=== PATIENT | male | born 1945 | race African-American/Black ===

== ENCOUNTER 2020-09-16 19:13 | Inpatient (IN) | payer OTHER ==
[~2020-09-16] VITALS: Ht 190.5 cm; Wt 130.2 kg
[~2020-09-16 19:13] MED LIST: AMLODIPINE5 MG PO; CIPROFLOXACN500 MG PO; DILAUDID 2MG2 MG/TA1 PO; DORZOLAMIDE2 % OU; GLIPIZIDE10 MG PO; HUMULIN R1 M1 SC; INSTA-GLUCOS40 % PO; LATANOPROST0.005 % OU; LOPID600 MG PO; LOPRESSOR50 M1 PO; LORATADINE10 M1 PO; METFORMIN850 MG PO; PREDNISONE10 MG PO; ULTRAM50 M1 PO
--- NOTE | 2020-09-16 19:13 | NUR ---
PT TO RM 16 VIA EMS FROM [facility] W/SOB +COVID X 5 DAYS
[2020-09-16 19:52] LABS: IMMATURE GRANULOCYTES 0.4 % (0.0-5.0); MEAN CELL VOLUME 93.1 fL CALC (80.0-100.0); MEAN CORPUSCULAR HGB 30.1 pG CALC (26.0-32.0); MEAN CORPUSCULAR HGB CONC 32.3 g/dL CAL (32.0-36.0); NEUT# 7.44 thou/uL (1.82-7.42); RED BLOOD COUNT 4.49 mill/uL (4.70-6.10); RED CELL DISTRI WIDTH 15.4 % (11.5-15.5)
[2020-09-16 20:00] LABS: HEMATOCRIT 41.8 % (39.0-50.0); HEMOGLOBIN 13.5 g/dl (14.0-18.0)
[2020-09-16 20:05] LABS: PROTHROMBIN TIME 10.2 SECONDS (9.0-12.5)
[2020-09-16] MEDS ORDERED: NOVOLIN N100 UNIT/3 SC ×2 (20:42→20:43)
[2020-09-16] MEDS ORDERED: ALLOPURINOL100 MG PO (20:47)
[2020-09-16 20:57] LABS: ALBUMIN 4.4 g/dL (3.2-5.0); CREATININE 1.5 mg/dL (0.7-1.3); POTASSIUM 4.5 mmol/l (3.5-5.1)
[2020-09-16 21:13] LABS: BILIRUBIN, TOTAL 0.5 mg/dL (0.0-1.4); TOTAL PROTEIN 8.4 g/dL (6.3-8.2)
--- NOTE | 2020-09-16 21:40 | NUR ---
INSULIN DOSE AT 2140 NOT GIVEN ACCUCHECK 117
--- NOTE | 2020-09-16 21:45 | NUR ---
po fluids provided to pt per md. advised of wait time for covid test results to facilitate transfer.
--- NOTE | 2020-09-16 23:35 | NUR ---
REPORT CALLED TO NURSE REG IN ICU ADVISED OF INSULIN HELD FOR BGL OF 117. PT VSS. IV SITES HEALTHY. REMAINS ON CARDIZEM DRIP AT 15MG/HR. IV ABT COMPLETE. PT ON HI FLOW O2. SATS.
--- NOTE | 2020-09-16 23:55 | NUR ---
spoke to pt @ length about prone position.
--- NOTE | 2020-09-16 23:55 | NUR ---
74 yr old black male admitted icu2 per stretcher from er to icu2. transferred self to bed. o2 15 liters per high flow nc. monitor worker shows a fib pvcs hr 138. #20 rac saline lock. #20 lac cardizem gtt infusing @ 15mg hr, ns infusing @ 100cchr. history obtained per pt & er record. oriented to room. bilat feet shackled together. guards x2 @ bedside. fall & air/contact precautions initiated.
[2020-09-17] VITALS (97 sets, daily range): BP systolic 74–204; BP diastolic 50–99
--- NOTE | 2020-09-17 02:00 | NUR ---
remains with hob in high position. o2 cont per nc. front desk monitor shows a fib pvc hr 142.
--- NOTE | 2020-09-17 04:00 | NUR ---
awake. nad. hall monitor shows a fib pvcs hr 138. hob remains in high position.
--- NOTE | 2020-09-17 05:59 | NUR ---
hob remains in high position. o2 cont per nc. monitoring manager shows a fib hr 134.
[2020-09-17 06:25] LABS: HEMATOCRIT 43.4 % (39.0-50.0); HEMOGLOBIN 14.2 g/dl (14.0-18.0); IMMATURE GRANULOCYTES 0.3 % (0.0-5.0); MEAN CELL VOLUME 91.2 fL CALC (80.0-100.0); MEAN CORPUSCULAR HGB 29.8 pG CALC (26.0-32.0); MEAN CORPUSCULAR HGB CONC 32.7 g/dL CAL (32.0-36.0); NEUT# 8.01 thou/uL (1.82-7.42); RED BLOOD COUNT 4.76 mill/uL (4.70-6.10); RED CELL DISTRI WIDTH 15.4 % (11.5-15.5)
[2020-09-17 06:52] LABS: ALBUMIN 4.2 g/dL (3.2-5.0); BILIRUBIN, TOTAL 0.6 mg/dL (0.0-1.4); CREATININE 1.4 mg/dL (0.7-1.3); POTASSIUM 4.5 mmol/l (3.5-5.1)
--- NOTE | 2020-09-17 07:20 | NUR ---
pt awake in bed; assessment completed at this time; pt alert and oriented; denies pain; no n/v noted; resp distress noted; resp labored/ tachypneic; lungs clear with exp wheezing; diminished bases; skin color wnl; o2 per hi marcus nc at 15L; o2 sat 86%; rayon tester cough noted; hr reg; strong pulses; no edema noted; afib 150s on monitor; abd distended with bs present; no bm noted per content writer; no urine to inspect at this time; urinal at bedside; #20 to lac saline locked; #20 to rac patent with ivf infusing without complication; no redness or edema noted at site; prone positioning explained; pt declined /requesting breakfast; resp failure with intubation explained and pt agree if need be; RT at bedside for ABG; plah of care/ meds explained; flowerpath staff x1 outside of door; pt shackled to bed via right ankle; call light within reach; will continue to monitor
--- NOTE | 2020-09-17 07:45 | NUR ---
RT at bedside; vapotherm placed at 40L with 100% FiO2
--- NOTE | 2020-09-17 08:19 | NUR ---
pt awake in bed; afib 140 on moitor; o2 sat 91% with vapotherm; labored resp noted; call light within reach; will continue to monitor
--- NOTE | 2020-09-17 09:21 | NUR ---
pt noted in resp distress; RT at bedside; o2 sats 60s; hr dropping into 90s; Dr De La Torre called per poem writer; awaiting arrival; pt agree to intubation again, witnessed per RT Gilberto; intubation set up at bedside; awaiting MD; will continue to monitor
--- NOTE | 2020-09-17 09:47 | NUR ---
staff at bedside; Dr De La Torre present at bedside; orders received to intubate; medicated per Dr De La Torre; pt intubated with a 7.5 ETT secured at the 23cm lip line; color changed verified; AC mode, rate 20, TV 500, peep 10.0, 100% Fio2; 16 fr OG placed at this time and clamped; 16Fr valadez catheter placed x1 attempt using laundry technician; immed return of dk yellow urine noted; cath strap placed; diprivan gt initated as per order/protocol; staff remains at bedside; will continue to monitor
--- NOTE | 2020-09-17 10:21 | NUR ---
intubated and sedated; iv's intact; afib 130s on the monitor; guard x1 outside door; valadez to gravity; will continue to monitor
--- NOTE | 2020-09-17 11:12 | NUR ---
lab at bedside; RT at bedside for suctioning; sputum specimen obtained; iv's intact and patent; propofol at 25mcg/kg/min; will continue to monitor
--- NOTE | 2020-09-17 12:14 | NUR ---
RT at bedside; frequent coughing noted; frequent suctioining required per RT; propofol gtt infusing per protocol; afib on monitor; valadez to gravity; vent intact and maintained; repositined; will continue to monitor-
--- NOTE | 2020-09-17 14:20 | NUR ---
intubated and sedated; vent maintained and in patent; afib 70s on monitor; valadez to gravity; [facility] staff present outside of door; cardizem gtt at 8mg/hr; propofol per protocol; will continue to monitor
--- NOTE | 2020-09-17 15:00 | NUR ---
Dr De La Torre called per telegraphic typewriter operator chief; informed of hypotension and bradycardia/ afib 30-50s on monitor; cardiazem has been stopped; orders received for levophed; atropine only to be given if needed; will continue to monitor
--- NOTE | 2020-09-17 16:30 | NUR ---
pt fully awake attempting to sit up in bed; condition/ intubation explained; diprivan gtt titrated from 20 mcg/kg/min to 30; bp stable; afin 60-70s on monitor; vent intact and maintained; restraints re-inforced; will continue to monitor
[2020-09-17 18:10] LABS: CREATININE 1.9 mg/dL (0.7-1.3)
[2020-09-17 18:21] LABS: POTASSIUM 5.7 mmol/l (3.5-5.1)
--- NOTE | 2020-09-17 18:22 | NUR ---
call placed to [facility] at [phone]; no answer
--- NOTE | 2020-09-17 18:36 | NUR ---
Dr De La Torre called per technical writer and editor; chemp results reviewed; abg reviewed; orders have been placed in computers; Dr De La Torre has notified Dr Abad of consult
--- NOTE | 2020-09-17 18:42 | NUR ---
call placed to [facility] to provide update; no answer;
--- NOTE | 2020-09-17 19:00 | NUR ---
RECEIVED REPORT FROM AM NURSE. PATIENT CONTINUES ON VENT. PATIENT WITH NO SIGNS OF DISTRESS. PROPOFOL, LEVO, AND FLUIDS INFUSING. WILL CONTINUE TO MONITOR.
[2020-09-17 19:22] LABS: CREATININE 2.1 mg/dL (0.7-1.3)
[2020-09-17 19:23] LABS: POTASSIUM 5.7 mmol/l (3.5-5.1)
--- NOTE | 2020-09-17 20:30 | NUR ---
ASSESSMENT COMPLETED. PATIENT CONTINUES ON VENT. PATIENT STARTED ON INSULIN GTT. BS CURRENTLY >400. PATIENT CONTINUES ON LEVO, PROPOFOL, AND 0.45 NS. PATIENT PROVIDED WITH MOUTH CARE/SUCTION. BP STABLE. PERIPHERAL IVS FLUSHED, WORKING WELL. GODWIN IN PLACE. LOW URINE OUTPUT. WILL CONTINUE TO MONITOR
[2020-09-17 21:16] LABS: BILIRUBIN, TOTAL 0.5 mg/dL (0.0-1.4); MAGNESIUM 2.1 mg/dL (1.6-2.3)
[2020-09-17 21:17] LABS: CREATININE 2.2 mg/dL (0.7-1.3)
[2020-09-17 21:23] LABS: POTASSIUM 5.3 mmol/l (3.5-5.1)
[2020-09-17 22:18] LABS: URINE BLOOD DIPSTICK NEGATIVE (NEGATIVE); URINE COLOR YELLOW; URINE GLUCOSE - DIPSTICK NEGATIVE (NEGATIVE); URINE KETONE Negative (NEGATIVE); URINE LEUK ESTERASE NEGATIVE (NEGATIVE); URINE NITRITE - DIPSTICK NEGATIVE (Negative); URINE PROTEIN - DIPSTICK NEGATIVE (NEG-TRACE); URINE SPECIFIC GRAVITY >=1.030; URINE UROBILINOGEN - DIPSTICK 0.2 E.U./dL (0.2)
[2020-09-17 22:25] LABS: URINE BILIRUBIN - DIPSTICK NEGATIVE (NEGATIVE)
--- NOTE | 2020-09-17 22:30 | NUR ---
PATIENT ROUNDED ON. BED BATH PROVIDED. PATIENT TOLERATED WELL. PATIENT CONTINUES ON PROPOFOL, LEVO, INSULIN GTT. TITRATED INDICATED. PATIENT TURNED AND REPOSITIONED. MOUTH CARE PROVIDED/SUCTIONED. PATIENT VITALS STABLE. WILL CONTINUE TO MONITOR.
[2020-09-17 22:52] LABS: CREATININE 2.2 mg/dL (0.7-1.3); POTASSIUM 5.1 mmol/l (3.5-5.1)
[2020-09-18] VITALS (19 sets, daily range): BP systolic 121–158; BP diastolic 60–73
--- NOTE | 2020-09-18 | NUR ---
patient continues to tolerate vent. patient continues on propofol, levo, and insulin gtt. titrated per emar. patient provided with mouth care. patient repositioned. patient with no signs of distress. will continue to monitor.
--- NOTE | 2020-09-18 02:00 | NUR ---
patient rounded on. patient tolerating vent. propofol, levo, and insulin gtt infusing. patient with no signs of distress. vitals stable. will continue to monitor.
[2020-09-18 02:56] LABS: CREATININE 2.3 mg/dL (0.7-1.3); POTASSIUM 4.7 mmol/l (3.5-5.1)
--- NOTE | 2020-09-18 04:00 | NUR ---
PATIENT CONTINUES TO TOLERATE VENT. PATIENT CONTINUES ON PREVIOUSLY MENTIONED GTTS. VITALS STABLE. WELL CONTINUE TO MONITOR.
--- NOTE | 2020-09-18 06:08 | NUR ---
PATIENT CONTINUES ON VENT. PATIENT WITH GTTS INFUSING. PATIENT WITH NO SIGNS OF DISTRESS. WILL CONTINUE TO MONITOR.
[2020-09-18 06:33] LABS: HEMATOCRIT 40.1 % (39.0-50.0); HEMOGLOBIN 12.9 g/dl (14.0-18.0); IMMATURE GRANULOCYTES 1.2 % (0.0-5.0); MEAN CELL VOLUME 93.5 fL CALC (80.0-100.0); MEAN CORPUSCULAR HGB 30.1 pG CALC (26.0-32.0); MEAN CORPUSCULAR HGB CONC 32.2 g/dL CAL (32.0-36.0); NEUT# 13.23 thou/uL (1.82-7.42); RED BLOOD COUNT 4.29 mill/uL (4.70-6.10); RED CELL DISTRI WIDTH 15.5 % (11.5-15.5)
--- NOTE | 2020-09-18 06:45 | NUR ---
RECIEVED REPORT FROM DEO CLARK. ASSUMED PT CARE.
[2020-09-18 06:52] LABS: BILIRUBIN, TOTAL 0.4 mg/dL (0.0-1.4); CREATININE 2.3 mg/dL (0.7-1.3); POTASSIUM 4.5 mmol/l (3.5-5.1); TOTAL PROTEIN 6.4 g/dL (6.3-8.2)
[2020-09-18 06:55] LABS: ALBUMIN 3.3 g/dL (3.2-5.0)
--- NOTE | 2020-09-18 07:30 | NUR ---
PT REMAINS INTUBATED, REMAINS AFIB ON TELEMETRY, HR 110. PT VENTED LL-24, ETT- 7.5, Tv- 470, rr-24, PEEP-10. SA02@ 94%, LS CLEAR/DIMINISHED, ABDOMEN DISTENDED, NON-TENDER. BSX4 HYPOACTIVE. PT CONTINUES WITH GENERALIZED EDEMA. OJ REMAINS ON INTERMITTENT SUCTION, GREEN CONTENT. GUARDS REMAIN OUTSIDE DOOR, ACCUCHECKS Q1HR CONTINUE, SEE IV TITRATIONS. WILL MONITOR.
--- NOTE | 2020-09-18 08:00 | NUR ---
DR. NOGUERA, NEW ORDERS. REDUCE 1/2 NS TO 75ML/HR.
--- NOTE | 2020-09-18 09:09 | NUR ---
HELD LOVENOX R/T CREATININE 2.3.
--- NOTE | 2020-09-18 10:00 | NUR ---
DR. CHISHOLM AT BEDSIDE, NEW ORDERS. STOP LEVOPHED, CARDIZEM INCREASED. NEW IV STARTED 22G RFA. PT TOLERATED WELL. WILL MONITOR.
--- NOTE | 2020-09-18 12:00 | NUR ---
PT REPOSITIONED, GUARDS REMAIN A T BEDSIDE. MOUTH CARE DONE.
--- NOTE | 2020-09-18 12:30 | NUR ---
LAB AT BEDSIDE FOR BLOOD DRAW, PT TOLERATED WELL.
[2020-09-18 13:03] LABS: CREATININE 2.2 mg/dL (0.7-1.3); POTASSIUM 4.5 mmol/l (3.5-5.1)
--- NOTE | 2020-09-18 13:14 | NUR ---
RT AT BEDSIDE FOR SUCTIONING. PT TOLERATED WELL.
--- NOTE | 2020-09-18 14:15 | NUR ---
CALL RECIEVED FROM DEO BERNAL AT [facility]. TRANSFER INITIATED FOR PT. CONFIRMED WITH DR. CHISHOLM.
--- NOTE | 2020-09-18 14:37 | NUR ---
FAXED FACE SHEET TO [facility] TRANSFER TO R,
--- NOTE | 2020-09-18 16:00 | NUR ---
PT REPOSITIONED, MOUTH CARE DONE. BS 277
--- NOTE | 2020-09-18 16:30 | NUR ---
NOTIFIED GABE AT [facility], SHE SAID TO HAVE DR. CHISHOLM NOTIFY ACCEPTING DR. SAGE AT [phone] OPTION 3 FOR REPORT, ONCE THAT IS COMPLETE TO NOTIFY [facility], AND CALL REPORT TO [phone]. PT WILL GO TO RM 250. DR. CHISHOLM NOTIFIED.
--- NOTE | 2020-09-18 17:19 | NUR ---
DR. CHISHOLM CALLED. PT HAS BEEN ACCEPTED TO [facility], BY DR. JESSICA OTOOLE. NOTES FAXED TO [phone] CHISHOLM REQUEST.
--- NOTE | 2020-09-18 17:32 | NUR ---
NOTIFIED [facility], SETTER MACHINE [phone] THAT PT WAS BEING TRANSFERRED TO [facility].
--- NOTE | 2020-09-18 17:35 | NUR ---
SPOKE WITH JULIANN AT [facility], . ETA FOR TRANSFER 30-45 MINUTES.
--- NOTE | 2020-09-18 18:06 | NUR ---
[facility] HERE FOR TRANSPORT, RT AT BEDSIDE. GUARDS REMAIN X2
--- NOTE | 2020-09-18 18:30 | NUR ---
FELICITY LEFT WITH PT VIA STRETCHER.
--- NOTE | 2020-09-18 18:35 | NUR ---
REPORT CALLED TO DEO JACK AT [facility], ICU [phone]. PT GOING TO RM 250.
== END 2020-09-18 18:30 | DRG 208 ==
LOC: ED 19:13 → ED-I 21:30 → ED 22:26 → ICU 22:27
PROVIDERS: Emergency Medicine; ADMIT Internal Medicine; ATTEND Internal Medicine
PROC: 5A09357 Assistance with Respiratory Ventilation, Less than 24 Consecutive Hours, Continuous Positive Airway Pressure (ICD-10-PCS; 2020-09-16)
PROC: XW033E5 Introduction of Remdesivir Anti-infective into Peripheral Vein, Percutaneous Approach, New Technology Group 5 (ICD-10-PCS; principal; 2020-09-17)
PROC: 0BH17EZ Insertion of Endotracheal Airway into Trachea, Via Natural or Artificial Opening (ICD-10-PCS; 2020-09-17)
PROC: 5A1945Z Respiratory Ventilation, 24-96 Consecutive Hours (ICD-10-PCS; 2020-09-17)
PROC: 0T9B70Z Drainage of Bladder with Drainage Device, Via Natural or Artificial Opening (ICD-10-PCS; 2020-09-17)
DX: U07.1 COVID-19 (principal); J12.89 Other viral pneumonia; J96.00 Acute respiratory failure, unspecified whether with hypoxia or hypercapnia; E11.10 Type 2 diabetes mellitus with ketoacidosis without coma; N17.0 Acute kidney failure with tubular necrosis; E87.1 Hypo-osmolality and hyponatremia; I95.9 Hypotension, unspecified; E87.5 Hyperkalemia; I48.91 Unspecified atrial fibrillation; I12.9 Hypertensive chronic kidney disease with stage 1 through stage 4 chronic kidney disease, or unspecified chronic kidney disease; E11.22 Type 2 diabetes mellitus with diabetic chronic kidney disease; N18.30 Chronic kidney disease, stage 3 unspecified; E78.5 Hyperlipidemia, unspecified; M10.9 Gout, unspecified; E66.01 Morbid (severe) obesity due to excess calories; Z79.84 Long term (current) use of oral hypoglycemic drugs; Z79.899 Other long term (current) drug therapy; Z88.1 Allergy status to other antibiotic agents; Z88.2 Allergy status to sulfonamides; Z88.8 Allergy status to other drugs, medicaments and biological substances
CPT/HCPCS: J1650